=== PATIENT | male | born 1955 | race Native Hawaiian/Other Pacific Islander ===

== ENCOUNTER 2022-07-08 16:24 | Emergency (ER) | payer BC ==
[~2022-07-08] VITALS: Ht 167.6 cm; Wt 72.1 kg
[2022-07-08 17:40] LABS: PLATELET COUNT 280 K/uL (142-355)
[2022-07-08 19:39] LABS: POTASSIUM 3.5 mmol/L (3.6-5.2)
[2022-07-08 21:10] VITALS: BP 178/87; TEMP 98.9
== END 2022-07-08 21:15 | disposition home or self-care (01) ==
LOC: ED 16:24
PROVIDERS: Emergency Medicine Emergency Medical Services
DX: U07.1 COVID-19 (principal); J20.8 Acute bronchitis due to other specified organisms
CPT/HCPCS: 36415; 80053; 81000; 83735; 84484; 85027; 87040; 87502; 87635; 93005; 96360; 96365; 99284; J1956; U0003